=== PATIENT | female | born 1995 | race African-American/Black ===

== ENCOUNTER 2020-07-11 10:22 | Emergency (ER) | payer BC, SELFPAY ==
[2020-07-11 10:32] VITALS: BP 109/67; PULSE 80; RESP 16; TEMP 36.9; O2SAT 100
--- NOTE | 2020-07-11 11:07 | ED.FEMALEGU ---
HPI - Female Genitourinary General Chief complaint: Urogenital-Female Stated complaint: uti Time Seen by Provider: 07/11/20 10:48 Source: patient and RN notes reviewed Mode of arrival: ambulatory Limitations: no limitations History of Present Illness HPI Narrative: Patient presents today with a 2-week history of urinary urgency and frequency, worse over the last 2 days. Denies dysuria, hematuria, vaginal discharge or odor. No concerns about sexually transmitted infections. States she does have recurrent UTIs. She has been taking cranberry pills, which were providing some mild relief until yesterday. Patient is ready to start her menstrual cycle at any time. MD elicited complaint: other (Frequency, urgency) Related Data Home Medications Medication Instructions Recorded Confirmed No Home Medications 07/11/20 07/11/20 Allergies Allergy/AdvReac Type Severity Reaction Status Date / Time amoxicillin AdvReac Mild Other Verified 07/11/20 10:24 Review of Systems Review of Systems: Narrative: CONSTITUTIONAL: Denies body aches, fever, chills, or sweats. EYES: Denies visual changes, redness, or discharge. ENT: Denies rhinorrhea, congestion, sore throat, or otalgia. CARDIOVASCULAR: Denies chest pain, palpitations, or edema. RESPIRATORY: Denies cough or dyspnea. GASTROINTESTINAL: Denies abdominal pain, nausea, vomiting, or diarrhea. GENITOURINARY: Denies dysuria or hematuria.+ Frequency, urgency SKIN: Denies rash, itching, or wounds. MUSCULOSKELETAL: Denies back pain, joint pain, or myalgia. NEUROLOGIC: Denies headache, numbness, tingling, or weakness. PSYCH: Denies depression or anxiety. [facility] Past Medical History Medical History No pertinent past medical history Surgical History Surgical History Previous section Social History Social History Smoking status: Never smoker Gender identity (if verbalized by the patient): Female Comments At time of signature, I have reviewed and agree with nursing past medical, surgical, social and family history unless otherwise noted. Please see nursing chart for further information. There is no relevant family history pertinent to the presenting complaint Exam Narrative: Exam Narrative: GENERAL: Well-appearing, well-nourished, and in no acute distress. HEAD: Normocephalic, atraumatic. EYES: EOMI. No redness or drainage. Conjunctivae normal. ENT: Mucous membranes pink and moist. NECK: Normal AROM. Supple. No lymphadenopathy. CHEST: No respiratory distress. Clear to auscultation. HEART: Regular rate and rhythm. No murmur appreciated. Normal peripheral pulses. ABDOMEN: Soft, nontender, nondistended, normal active bowel sounds.- CVAT MUSCULOSKELETAL: No bony tenderness. EXTREMITIES: Normal range of motion. No edema. SKIN: Warm, dry, no rash. Capillary refill normal. Normal skin turgor. NEURO: No focal deficits. Alert and oriented x3. Gait steady. PSYCH: Normal affect. No signs of depression or anxiety. Course Vital Signs Vital signs: Vital Signs Temperature 98.4 F 07/11/20 10:32 Pulse Rate 80 07/11/20 10:32 Respiratory Rate 16 07/11/20 10:32 Blood Pressure 109/67 07/11/20 10:32 Pulse Oximetry 100 07/11/20 10:32 Temperature 98.4 F 07/11/20 10:32 Pulse Rate 80 07/11/20 10:32 Respiratory Rate 16 07/11/20 10:32 Blood Pressure 109/67 07/11/20 10:32 Pulse Oximetry 100 07/11/20 10:32 Reviewed MDM - Female Genitourinary Differential Diagnosis Differential diagnosis: Likely urinary tract infection, vaginitis, cystitis and other (Interstitial cystitis) Lab Data Attestation: I reviewed the patient's lab results. Labs: Urine Glucose Negative Reference Range: Negative Urine Bilirubin Negative Reference
== END 2020-07-11 11:12 | disposition home or self-care (01) ==
PROVIDERS: Emergency Provider Nurse Practitioner; PCP Nurse Practitioner Family
DX: R35.0 Frequency of micturition (principal); R39.15 Urgency of urination
CPT/HCPCS: 81003; 87086; 99213; G0463